=== PATIENT | male | born 1990 | race Hispanic/Latino ===

== ENCOUNTER 2020-09-07 12:33 | Emergency (ER) | payer OTHER ==
[2020-09-07] MEDS ORDERED: OMEPRAZOLE DR20 MG PO (13:17)
[2020-09-07] MEDS ORDERED: NAPROXEN500 MG PO (15:06)
[2020-09-07 15:22] VITALS: BP 130/82
== END 2020-09-07 15:22 | disposition home or self-care (01) | DRG 605 ==
LOC: ED 12:33
DX: S30.0XXA Contusion of lower back and pelvis, initial encounter (principal); F17.210 Nicotine dependence, cigarettes, uncomplicated; W22.8XXA Striking against or struck by other objects, initial encounter; Y93.89 Activity, other specified; Y92.74 Orchard as the place of occurrence of the external cause; Y99.0 Civilian activity done for income or pay

== ENCOUNTER 2020-09-20 12:24 | Emergency (ER) | payer OTHER ==
[~2020-09-20] VITALS: Ht 248.9 cm; Wt 62.0 kg
[~2020-09-20 12:24] MED LIST: NAPROXEN500 MG PO; OMEPRAZOLE DR20 MG PO
[2020-09-20 14:52] VITALS: BP 131/76
[2020-09-20] MEDS ORDERED: MOTRIN400 MG/TAB PO (14:53)
== END 2020-09-20 15:02 | disposition home or self-care (01) | DRG 605 ==
LOC: ED 12:24
DX: S30.0XXA Contusion of lower back and pelvis, initial encounter (principal); X58.XXXA Exposure to other specified factors, initial encounter